=== PATIENT | male | born 1955 | race Two or more races ===

== ENCOUNTER 2019-08-11 04:59 | Inpatient (IN) | payer BC, OTHER ==
[2019-08-10 13:35] VITALS: BMI 21.7
[2019-08-11] MEDS ORDERED: ONDANSETRON 4 MG/2 ML VIAL IVPUSH PRN (12:25)
[2019-08-11] MEDS ORDERED: LACTATED RINGERS SOLUTION 1,000 ML IV SCH (12:30)
[2019-08-11] MEDS ORDERED: MIDAZOLAM HCL 2 MG/2 ML SINGLE DOSE VIAL ONE (12:30)
[2019-08-11] MEDS ORDERED: PROPOFOL 20 ML ONE (12:32)
[2019-08-11] MEDS ORDERED: ceFAZolin SODIUM 1 GM VIAL IVPB ONE (12:35)
--- NOTE | 2019-08-11 13:41 | OP ---
Operative Note - Note: Operative Date: 08/11/19 Pre-Operative Diagnosis: BPH w/ obstruction Operation: TURP/TUVP Findings: Trilobar hypertrophy prostate bladder trabeculation. Post-Operative Diagnosis: Same as Pre-op Surgeon: Odalys Rizo Anesthesia: General Specimens Removed: Prostate chips Drains & Tubes with Location: 24 kiswahili, 30cc [address] triana Operative Report Dictated: Yes
--- NOTE | 2019-08-11 14:23 | HP ---
DATE OF ADMISSION: 08/11/2019 HISTORY OF PRESENT ILLNESS: The patient is a 64-year-old male with history of prostatism including frequency, urgency, nocturia, dribbling, and feelings of incomplete bladder emptying. Patient has had elevations of his PSA up to 7.7, has had past biopsies which came back as benign. He also has a history of hypogonadism as well as erectile dysfunction on hormone replacement therapy. He has been on Flomax without any relief. PHYSICAL EXAMINATION: General: A well developed adult male. Abdomen: Soft and nontender. Genitalia: Atraumatic. His prostate is 2+, firm, not nodular. Cystoscopy revealed bladder diverticulum with obstructing prostate gland. BUN and creatinine are 19 over 0.9. Again, his PSA is 7.7. ASSESSMENT/PLAN: The patient is to undergo a cystoscopy and a transurethral resection of prostate. This was explained to patient, and he agrees. Michael [id number]
[2019-08-11] MEDS: SODIUM CHLORIDE 1,000 ML IV SCH (14:28)
[2019-08-11] MEDS: ACETAMINOPHEN 1000 MG/100 ML VIAL (NON FORMULARY) IVPB PRN (15:35)
--- NOTE | 2019-08-11 17:13 | OP ---
DATE OF OPERATION: 08/11/2019 PREOPERATIVE DIAGNOSIS: Obstructive uropathy, benign prostatic hypertrophy, recurrent retention. POSTOPERATIVE DIAGNOSIS: Trilobar hypertrophy of the prostate and trabeculated bladder. OPERATIVE PROCEDURE: Transurethral resection of prostate and transurethral vaporization of prostate. ANESTHESIA: General. DESCRIPTION OF PROCEDURE: Under above-stated anesthesia, patient is prepped and draped in the usual sterile manner. He is placed in the dorsal lithotomy position. Cystoscopy revealed trilobar hypertrophy of the prostate. There was lateral lobe kissing. Resectoscope was inserted. Resection of the prostate was commenced at the 6 o'clock position of the right lateral lobe. This was carried on up to the 12 o'clock position. Same thing was done to the left lateral lobe. Lastly, the median lobe was resected. Hemostasis was secured with electrocoagulation. Excess tissue was vaporized with a VaporTrode. An i2O Water evacuator was used to evacuate prostate chips. No active bleeding was noted. Therefore, a 24-Estonian 3-way 30-mL Gauthier was inserted and connected to a drainage bag. The patient tolerated the procedure well. He returned to the recovery room in good condition. Michael [id number]
[2019-08-11] MEDS: oxyCODONE HCL 5 MG TABLET PO PRN (19:05)
[2019-08-11] MEDS ORDERED: FLU VACCINE QUAD 60 MCG/0.5 ML (MDV 19-20) IM ONE (22:49)
[2019-08-11] MEDS: ACETAMINOPHEN 325 MG TABLET (FP) PO PRN (22:55)
[2019-08-12] MEDS: ACETAMINOPHEN 1000 MG/100 ML VIAL (NON FORMULARY) IVPB PRN ×2 (04:04→15:32)
[2019-08-12] MEDS: SODIUM CHLORIDE 1,000 ML IV SCH ×2 (04:05→18:27)
[2019-08-12] MEDS: LACTATED RINGERS SOLUTION 1,000 ML IV SCH ×2 (04:06→15:31)
[2019-08-12] MEDS: oxyCODONE HCL 5 MG TABLET PO PRN ×3 (04:37→15:41)
[2019-08-12] MEDS: ACETAMINOPHEN 325 MG TABLET (FP) PO PRN (09:38)
[2019-08-12] MEDS ORDERED: cefTRIAXone SODIUM 1 GM VIAL ONE ×2 (12:47→21:07)
[2019-08-12] MEDS ORDERED: DEXTROSE 5%-WATER - 50 ML IVPB ONE ×2 (12:47→21:07)
[2019-08-12] MEDS: CEFTRIAXONE 1 GM in DEXTROSE 5%-WATER - 50 ML IVPB SCH ×2 (13:12→21:13)
[2019-08-13] MEDS: oxyCODONE HCL 5 MG TABLET PO PRN ×3 (00:21→18:35)
[2019-08-13] MEDS: ACETAMINOPHEN 1000 MG/100 ML VIAL (NON FORMULARY) IVPB PRN (01:34)
--- NOTE | 2019-08-13 09:24 | CONSULT ---
Consultation: HISTORY OF PRESENT ILLNESS: 64 year old male with a history of BPH is POD #3 for TURP due to BPH. Patient has had fevers for the past several days. Reports that they may have begun prior to his surgery, but he only began to feel serious chills after his operation. States that he feels occasional body aches and reports pain when he needs to urinate, but denies any other complaints. Denies chest pain, SOB, nausea, vomiting, diarrhea, abdominal pain, cough, chest pain. Allergies: none Smoke: 1 cig/day for 20 years Alcohol: occasional Drugs: none Surgery: 2 TURPs Family History: heart disease "runs in the family" REVIEW OF SYSTEMS: CONSTITUTIONAL: fever Absent: chills, diaphoresis, generalized weakness, malaise, loss of appetite, weight change HEENT: Absent: rhinorrhea, nasal congestion, throat pain, throat swelling, difficulty swallowing, mouth swelling, ear pain, eye pain, visual changes CARDIOVASCULAR: Absent: chest pain, syncope, palpitations, irregular heart rate, lightheadedness , peripheral edema RESPIRATORY: Absent: cough, shortness of breath, dyspnea with exertion, orthopnea, wheezing, stridor, hemoptysis GASTROINTESTINAL: Absent: abdominal pain, abdominal distension, nausea, vomiting, diarrhea, constipation, melena, hematochezia GENITOURINARY: Absent: dysuria, frequency, urgency, hesitancy, hematuria, flank pain, genital pain MUSCULOSKELETAL: Absent: myalgia, arthralgia, joint swelling, back pain, neck pain SKIN: Absent: rash, itching, pallor HEMATOLOGIC/IMMUNOLOGIC: Absent: easy bleeding, easy bruising, lymphadenopathy, frequent infections ENDOCRINE: Absent: unexplained weight gain, unexplained weight loss, heat intolerance, cold intolerance NEUROLOGIC: Absent: headache, focal weakness or paresthesias, dizziness, unsteady gait, seizure, mental status changes, bladder or bowel incontinence PSYCHIATRIC: Absent: anxiety, depression, suicidal or homicidal ideation, hallucinations. PHYSICAL EXAMINATION Vital Signs - 24 hr 08/12/19 08/12/19 08/12/19 11:00 15:00 16:05 Temperature 102.3 F H 101.8 F H 103 F H Pulse Rate 100 H 106 H 97 H Respiratory 18 18 20 Rate Blood Pressure 131/74 157/75 136/72 08/12/19 08/12/19 08/12/19 18:35 19:00 20:00 Temperature 101 F H 99.3 F 98.9 F Pulse Rate 70 84 Respiratory 20 18 Rate Blood Pressure 121/77 132/77 08/13/19 08/13/19 02:00 06:17 Temperature 102.7 F H 98.8 F Pulse Rate 100 H 82 Respiratory 18 16 Rate Blood Pressure 150/84 GENERAL: A&Ox3, no acute distress EYES: PERRLA, EOMI ENT: Moist mucus membranes NECK: No JVD LUNGS: CTA, no wheezes HEART: RRR, no murmurs ABDOMEN: Soft, nontender, BS present MUSCULOSKELETAL: No CVA Tenderness EXTREMITIES: 2+ pulses, no edema. NEUROLOGICAL: Cranial nerves II-XII intact. : Gauthier in place draining clear yellow urine Active Medications Generic Name Dose Route Start Last Admin Trade Name Freq PRN Reason Stop Dose Admin Acetaminophen 325 mg 08/11/19 16:46 08/12/19 09:38 Tylenol - PO 325 mg Q6H PRN Administration PAIN LEVEL 7-10 Fentanyl 50 mcg 08/11/19 12:25 08/11/19 14:30 Sublimaze Injection - IVPUSH 50 mcg [id number] PRN Administration PAIN-PACU ORDER X 4 DOSES ONLY Fentanyl 25 mcg 08/11/19 13:47 Sublimaze Injection - IVPUSH [id number] PRN PAIN-PACU ORDER X 4 DOSES ONLY Sodium Chloride 1,000 mls @ 83 mls/hr 08/11/19 13:45 08/12/19 18:27 Normal Saline - IV 83 mls/hr ASDIR TOMA Administration Lactated Ringer's 1,000 mls @ 75 mls/hr 08/11/19 14:00 08/12/19 15:31 Lactated Ringers Solution IV Not Given ASDIR TOMA Ceftriaxone Sodium 1 gm/ 50 mls @ 100 mls/hr 08/12/19 12:00 08/12/19 21:13 Dextrose IVPB 100 mls/hr BID TOMA Administration Ondansetron HCl 4 mg 08/11/19 12:25 Zofran Injection IVPUSH Q6H PRN NAUSEA AND/OR VOMITING Oxycodone HCl 5 mg 08/11/19 12:25 08/12/19 15:41 Roxicodone - PO 5 mg Q4H PRN Administration PAIN LEVEL 1-5 Oxycodone HCl 5 mg 08/11/19 16:46 08/13/19 00:21 Roxicodone - PO 5 mg Q6H PRN Administration PAIN LEVEL 7-10 ASSESSMENT/PLAN: 64 year old male with a history of BPH is POD #3 for TURP due to BPH. Patient has had fevers for the past several days. #Post-operative fever: unclear etiology, patient is POD3 with uncomplicated postoperative course -initial blood/urine cultures were negative -repeat urine culture -chest XR ordered and is negative for infection -ceftriaxone ordered -ID consultation -IVF w/ NS @ 83cc/hr -DC CBI -respiratory virus panel ordered #BPH: s/p turp POD3 -pain control oxycodone/tylenol -Dr Rizo on board -CBI d/c'd -monitor urine output #FEN -NS @ 83cc/hr -lytes normal -regular diet #Prophylaxis -SCDS #Disposition -med surg Visit type - Emergency Visit Emergency Visit: No - New Patient This patient is new to me today: Yes Date on this admission: 08/13/19 - Critical Care Critical Care patient: No ATTENDING PHYSICIAN STATEMENT I saw and evaluated the patient. I reviewed the resident's note and discussed the case with the resident. I agree with the resident's findings and plan as documented. SUBJECTIVE: OBJECTIVE: ASSESSMENT AND PLAN:
[2019-08-13] MEDS ORDERED: cefTRIAXone SODIUM 1 GM VIAL ONE ×2 (09:39→21:52)
[2019-08-13] MEDS ORDERED: DEXTROSE 5%-WATER - 50 ML IVPB ONE ×2 (09:39→21:52)
[2019-08-13] MEDS: ACETAMINOPHEN 325 MG TABLET (FP) PO PRN ×2 (10:20→18:36)
[2019-08-13] MEDS: CEFTRIAXONE 1 GM in DEXTROSE 5%-WATER - 50 ML IVPB SCH ×2 (10:21→22:02)
[2019-08-13 10:28] LABS: BASO % 0.6 % (0-2.0); EOS % 8.9 % (0-4.5); HEMATOCRIT 34.8 % (35.4-49); HEMOGLOBIN 11.1 GM/dL (11.7-16.9); LYMPH % 7.3 % (8-40); MCH 28.1 pg (25.7-33.7); MCHC 31.9 g/dl (32.0-35.9); MEAN CELL VOLUME 88.1 fl (80-96); MEAN PLT VOLUME 8.6 fl (7.5-11.1); MONO % 6.1 % (3.8-10.2); NEUT % 77.1 % (42.8-82.8); PLATELET COUNT 177 K/MM3 (134-434); RBC 3.95 M/mm3 (4.00-5.60); RDW 13.9 % (11.9-15.9); WHITE BLOOD COUNT 7.9 K/mm3 (4.0-10.0)
[2019-08-13 10:53] LABS: ALBUMIN 2.7 g/dl (3.4-5.0); BILIRUBIN,TOTAL 0.2 mg/dL (0.2-1); BLOOD UREA NITROGEN 11.8 mg/dL (7-18); CALCIUM 8.1 mg/dL (8.5-10.1); CREATININE 0.9 mg/dL (0.55-1.3); POTASSIUM 3.7 mmol/L (3.5-5.1); TOT PROT 5.6 g/dl (6.4-8.2)
--- NOTE | 2019-08-13 16:58 | CON.ID ---
Consult - History of Present Illness History of Present Illness: 64 y.o. male with PMH of prostatitis/BPH with elevated PSA (previous biopsies benign), erectile dysfunction and hypoganidism on HRT underwent cystoscopy/TURP 2 days ago. Subsequently he developed persistent fevers (Tmax 103F) and chills. Urine cultures on day of surgery were negative. Pt was started on Ceftriaxone while awaiting workup for infectious source. Today he is alert, without acute distress with temp of 100.2F earlier in the am and afebrile since. He denies cough/SOB/chest pain/nausea/vomiting/diarrhea/rash and has no other specific complaints. Appears comfortable. 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: Alzheimer's, CVA, Dementia, Migraine, Multiple Sclerosis, Peripheral Neuropathy, Parkinson's, Seizure, Syncope, TIA, Vertigo, Other Cardio/Vascular: No: AFIB, Aneurysm, Aortic Insufficiency, Aortic Stenosis, CAD , CHF, Deep Vein Thrombosis, HTN, Hyperlipdemia, AL, Mitral Insufficiency, Mitral Stenosis, Murmur, Pulmonary Hypertension, Other Pulmonary: No: Asthma, Bronchitis, Cancer, COPD, O2 Dependent, Pneumonia, Previously Intubated, Pulmonary Embolus, Pulmonary Fibrosis, Sleep Apnea, Other Gastrointestinal: No: Ascites, Cancer, Constipation, Crohn's Disease, Diverticulitis, Diverticulosis, Esophageal Varices, Gastritis, GERD, GI Bleed, Hemorrhoids, Hiatal Hernia, Inflamatory Bowel Disease, Irritable Bowel Disease, Pancreatitis, Peptic Ulcer Disease, Ulcerative Colitis, Other Hepatobiliary: No: Cirrhosis, Cholelithiasis, Cholecystitis, Choledocholithiasis , Hepatitis A, Hepatitis B, Hepatitis C, Other Renal/: Yes: BPH Heme/Onc: No: Anemia, B12 Deficiency, Bleeding Disorder, Cancer, Current Chemotherapy, Current Radiation Therapy, Hemochromatosis, Hypercoaguable State, Myeloproliferative Synd, Sickle Cell Disease, Sickle Cell Trait, Thrombocytopenia, Other Infectious Disease: No: AIDS, C-Diff, Herpes Zoster, HIV, MRSA, STD's, Tuberculosis, VREF, Other Psych: No: Addictions, Anxiety, Bipolar, Depression, Panic, Psychosis, Schizophrenia, Other Musculoskeletal: No: Bursitis, Chronic low back pain, Hemiparesis, Hemiplegia, Osteoarthritis, Paraplegia, Other Rheumatology: No: Fibromyalgia, Gout, Lupus, Rheumatoid Arthritis, Sarcoidosis, Vasculitis, Other ENT: No: Allergic Rhinitis, Sinusitis, Other Endocrine: Yes: Other (hypogonadism) - Alcohol/Substance Use Hx Alcohol Use: Yes (OCCASIONAL) - Smoking History Smoking history: Current some day smoker Aproximately how many cigarettes per day: 2 Home Medications - Allergies Allergies/Adverse Reactions: Allergies Allergy/AdvReac Type Severity Reaction Status Date / Time No Known Drug Allergies Allergy Verified 08/11/19 09:39 - Home Medications Home Medications: Ambulatory Orders Atorvastatin Ca [Lipitor] 20 mg PO HS 08/10/19 Ibuprofen/Diphenhydramine Cit [Advil Pm Caplet] 1 each PO HS 08/10/19 Tamsulosin HCl [Flomax] 0.4 mg PO HS 08/10/19 Review of Systems - Review of Systems Constitutional: reports: Chills, Fever Eyes: denies: No Symptoms, Blind Spots, Blurred Vision, Double Vision, Eye Pain , Floaters, Photophobia, Recent Change in Vision, Other HENT: denies: No Symptoms, Difficult Swallowing, Ear Discharge, Ear Pain, Epistaxis, Gingival Bleeding, Hearing Loss, Mouth Swelling, Nasal Congestion, Ocular Prosthesis, Throat Pain, Toothache, Ringing in Ears, Other Neck: denies: No Symptoms, Decreased ROM, Lumps, Pain on Movement, Stiffness, Swollen Glands, Tenderness, Other Cardiovascular: denies: No Symptoms, Chest Pain, Edema, Palpitations, Shortness of Breath, Other Respiratory: denies: No Symptoms, Cough, Exercise Intolerance, Hemoptysis, Orthopnea, PND, Snoring, SOB, SOB on Exertion, Wheezing, Other Gastrointestinal: denies: No Symptoms, Abdominal Pain, Bloating, Constipation, Diarrhea, Dysphagia, Indigestion, Melena, Nausea, Rectal Bleeding, Vomiting, Vomiting Blood, Other Genitourinary: reports: Dysuria. denies: No Symptoms, Burning, Discharge, Flank Pain, Frequency, Hematuria, Incontinence, Lesions, Menses, Pain, Testicular Mass, Testicular Pain, Testicular Swelling, Urgency, Vaginal Bleeding , Other Musculoskeletal: denies: No Symptoms, Back Pain, Crepitus, Decreased ROM, Extremity Pain, Joint Pain, Joint Swelling, Muscle Pain, Muscle Cramps, Muscle Weakness, Other Integumentary: denies: No Symptoms, Blister, Bruising, Change in Color, Eczema, Erythema, Incision, Lesions, Lump, Pallor, Pruritis, Rash, Wound, Other Neurological: denies: No Symptoms, Change in LOC, Change in Speech, Confusion, Dizziness, Headache, Incoordination, Numbness, Parasthesia, Pre-Existing Deficit , Seizure, Syncope, Tremors, Unsteady Gait, Weakness, Other Endocrine: denies: No Symptoms, Excessive Sweating, Flushing, Increased Hunger, Increased Thirst, Intolerance to Cold, Intolerance to Heat, Unexplained Weight Gain, Unexplained Weight Loss, Other Hematology/Lymphatic: denies: No Symptoms, Easily Bruised, Excessive Bleeding, Swollen Glands, Other Psychiatric: denies: No Symptoms, Altered Sleep Pattern, Anxiety, Depression, Hallucinations, Panic, Paranoia, Suicidal, Other Physical Exam Vital Signs: Vital Signs Temperature 98 F 08/13/19 15:00 Pulse Rate 59 L 08/13/19 15:00 Respiratory Rate 18 08/13/19 15:00 Blood Pressure 159/71 08/13/19 15:00 O2 Sat by Pulse Oximetry (%) 99 08/13/19 09:00 Constitutional: Yes: No Distress, Calm Eyes: Yes: Conjunctiva Clear, EOM Intact HENT: Yes: Atraumatic Neck: Yes: Supple Cardiovascular: Yes: Regular Rate and Rhythm Respiratory: Yes: CTA Bilaterally Gastrointestinal: Yes: Normal Bowel Sounds, Soft Renal/: Yes: Gauthier Present (mild hematuria) Musculoskeletal: Yes: WNL Extremities: Yes: WNL Edema: No Peripheral Pulses WNL: Yes Integumentary: Yes: WNL Neurological: Yes: Alert, Oriented Psychiatric: Yes: Alert Labs: CBC, BMP 08/13/19 10:12 08/13/19 10:12 Microbiology 08/12/19 12:35 Blood - Peripheral Venous Blood Culture - Preliminary NO GROWTH OBTAINED AFTER 24 HOURS, INCUBATION TO CONTINUE FOR 4 DAYS. 08/12/19 12:45 Blood - Peripheral Venous Blood Culture - Preliminary NO GROWTH OBTAINED AFTER 24 HOURS, INCUBATION TO CONTINUE FOR 4 DAYS. 08/11/19 13:00 Urine - Urine, Via Cystoscope Urine Culture - Final NO GROWTH OBTAINED Imaging - Results Chest X-ray: Report Reviewed Assessment/Plan 64 y.o. male with PMH of prostatitis/BPH with elevated PSA (previous biopsies benign), erectile dysfunction and hypoganidism on HRT underwent cystoscopy/TURP 2 days ago and subsequently developed fevers Fever/chills - r/o infectious etiology vs post-op induced BPH/prostatitis s/p cystoscopy/TURP POD#2 Hypogonadism Erectile dysfunction on hormone replacement therapy -- continue Ceftriaxone empirically for now -- Pt afebrile since this a.m. -- Previous urine cultures neg, blood cultures neg 24hrs - continue follow -- repeat Urine culture sent -- monitor wbc trend, normal today -- CXR negative Currently stable, afebrile, without distress at this time Will follow Thank you
[2019-08-13] MEDS: LACTATED RINGERS SOLUTION 1,000 ML IV SCH (18:09)
[2019-08-13] MEDS: SODIUM CHLORIDE 1,000 ML IV SCH (18:09)
--- NOTE | 2019-08-13 20:23 | PN ---
Teaching Attending Note Name of Resident: Donta Bolivar ATTENDING PHYSICIAN STATEMENT I saw and evaluated the patient. I reviewed the resident's note and discussed the case with the resident. I agree with the resident's findings and plan as documented. SUBJECTIVE: Patient is a 64yo female with PMHx of BPH s/p TURP and CBI, having fever of 102.7 today. OBJECTIVE: Vital Signs Temperature 99.4 F 08/13/19 19:12 Pulse Rate 80 08/13/19 17:14 Respiratory Rate 20 08/13/19 17:14 Blood Pressure 136/81 08/13/19 17:14 O2 Sat by Pulse Oximetry (%) 99 08/13/19 09:00 GENERAL: The patient is awake, alert, and fully oriented, in no acute distress. HEAD: Normal with no signs of trauma. EYES: PERRL, extraocular movements intact, sclera anicteric, conjunctiva clear. ENT: Ears normal, oropharynx clear without exudates, moist mucous membranes. NECK: Trachea midline, full range of motion, supple. LUNGS: Breath sounds equal, clear to auscultation bilaterally, no wheezes, no crackles, no accessory muscle use. HEART: Regular rate and rhythm, S1, S2 without murmur, rub or gallop. ABDOMEN: Soft, nontender, nondistended, normoactive bowel sounds, no guarding, no rebound, no hepatosplenomegaly, no masses. EXTREMITIES: 2+ pulses, warm, well-perfused, no edema. NEUROLOGICAL: Cranial nerves II through XII grossly intact. Normal speech, gait not observed. PSYCH: Normal mood, normal affect. SKIN: Warm, dry, normal turgor, no rashes or lesions noted CBCD WBC 7.9 K/mm3 (4.0-10.0) 08/13/19 10:12 RBC 3.95 M/mm3 (4.00-5.60) L 08/13/19 10:12 Hgb 11.1 GM/dL (11.7-16.9) L 08/13/19 10:12 Hct 34.8 % (35.4-49) L 08/13/19 10:12 MCV 88.1 fl (80-96) 08/13/19 10:12 MCHC 31.9 g/dl (32.0-35.9) L 08/13/19 10:12 RDW 13.9 % (11.9-15.9) 08/13/19 10:12 Plt Count 177 K/MM3 (134-434) 08/13/19 10:12 MPV 8.6 fl (7.5-11.1) 08/13/19 10:12 CMP Sodium 139 mmol/L (136-145) 08/13/19 10:12 Potassium 3.7 mmol/L (3.5-5.1) 08/13/19 10:12 Chloride 108 mmol/L (98-107) H 08/13/19 10:12 Carbon Dioxide 27 mmol/L (21-32) 08/13/19 10:12 Anion Gap 4 MMOL/L (8-16) L 08/13/19 10:12 BUN 11.8 mg/dL (7-18) 08/13/19 10:12 Creatinine 0.9 mg/dL (0.55-1.3) 08/13/19 10:12 Random Glucose 158 mg/dL (74-106) H 08/13/19 10:12 Calcium 8.1 mg/dL (8.5-10.1) L 08/13/19 10:12 Total Bilirubin 0.2 mg/dL (0.2-1) 08/13/19 10:12 AST 37 U/L (15-37) 08/13/19 10:12 ALT 58 U/L (13-61) 08/13/19 10:12 Alkaline Phosphatase 98 U/L (45-117) 08/13/19 10:12 Total Protein 5.6 g/dl (6.4-8.2) L 08/13/19 10:12 Albumin 2.7 g/dl (3.4-5.0) L 08/13/19 10:12 Current Medications Generic Name Dose Route Start Last Admin Trade Name Freq PRN Reason Stop Dose Admin Acetaminophen 325 mg 08/11/19 16:46 08/13/19 18:36 Tylenol - PO 325 mg Q6H PRN Administration PAIN LEVEL 7-10 Fentanyl 50 mcg 08/11/19 12:25 08/11/19 14:30 Sublimaze Injection - IVPUSH 50 mcg [id number] PRN Administration PAIN-PACU ORDER X 4 DOSES ONLY Fentanyl 25 mcg 08/11/19 13:47 Sublimaze Injection - IVPUSH [id number] PRN PAIN-PACU ORDER X 4 DOSES ONLY Sodium Chloride 1,000 mls @ 83 mls/hr 08/11/19 13:45 08/13/19 18:09 Normal Saline - IV Not Given ASDIR TOMA Lactated Ringer's 1,000 mls @ 75 mls/hr 08/11/19 14:00 08/13/19 18:09 Lactated Ringers Solution IV Not Given ASDIR TOMA Ceftriaxone Sodium 1 gm/ 50 mls @ 100 mls/hr 08/12/19 12:00 08/13/19 10:21 Dextrose IVPB 100 mls/hr BID TOMA Administration Ondansetron HCl 4 mg 08/11/19 12:25 Zofran Injection IVPUSH Q6H PRN NAUSEA AND/OR VOMITING Oxycodone HCl 5 mg 08/11/19 12:25 08/13/19 18:35 Roxicodone - PO 5 mg Q4H PRN Administration PAIN LEVEL 1-5 Oxycodone HCl 5 mg 08/11/19 16:46 08/13/19 00:21 Roxicodone - PO 5 mg Q6H PRN Administration PAIN LEVEL 7-10 Home Medications Medication Instructions Recorded Atorvastatin Ca [Lipitor] 20 mg PO HS 08/10/19 Ibuprofen/Diphenhydramine Cit 1 each PO HS 08/10/19 [Advil Pm Caplet] Tamsulosin HCl [Flomax] 0.4 mg PO HS 08/10/19 ASSESSMENT AND PLAN: Patient is a 64yo female with a history of BPH is POD #3 for TURP due to BPH. consulted for having fever of several day. #POD#2 hx of BPH/prostatitis s/p TURP s/p CBI , clearing up. Post-operative fever , calderon cx, IV rocephin , ID on the case #Fever/chills - r/o infectious etiology vs post-op induced #Hypogonadism # Erectile dysfunction on hormone replacement therapy DVT Px: SCDS
[2019-08-14] MEDS: oxyCODONE HCL 5 MG TABLET PO PRN ×4 (01:23→21:55)
[2019-08-14] MEDS: ACETAMINOPHEN 325 MG TABLET (FP) PO PRN ×3 (01:30→21:54)
--- NOTE | 2019-08-14 09:57 | PN ---
Progress Note, Physician History of Present Illness: spiked a fever last night currently feels better - Current Medication List Current Medications: Active Medications Acetaminophen (Tylenol -) 325 mg PO Q6H PRN PRN Reason: PAIN LEVEL 7-10 Last Admin: 08/14/19 01:30 Dose: 325 mg Fentanyl (Sublimaze Injection -) 50 mcg IVPUSH [id number] PRN PRN Reason: PAIN-PACU ORDER X 4 DOSES ONLY Last Admin: 08/11/19 14:30 Dose: 50 mcg Fentanyl (Sublimaze Injection -) 25 mcg IVPUSH [id number] PRN PRN Reason: PAIN-PACU ORDER X 4 DOSES ONLY Sodium Chloride (Normal Saline -) 1,000 mls @ 83 mls/hr IV ASDIR [facility] Last Admin: 08/13/19 18:09 Dose: Not Given Lactated Ringer's (Lactated Ringers Solution) 1,000 mls @ 75 mls/hr IV ASDIR [facility] Last Admin: 08/13/19 18:09 Dose: Not Given Ceftriaxone Sodium 1 gm/ (Dextrose) 50 mls @ 100 mls/hr IVPB BID [facility] Last Admin: 08/13/19 22:02 Dose: 100 mls/hr Ondansetron HCl (Zofran Injection) 4 mg IVPUSH Q6H PRN PRN Reason: NAUSEA AND/OR VOMITING Oxycodone HCl (Roxicodone -) 5 mg PO Q4H PRN PRN Reason: PAIN LEVEL 1-5 Last Admin: 08/14/19 01:23 Dose: 5 mg Oxycodone HCl (Roxicodone -) 5 mg PO Q6H PRN PRN Reason: PAIN LEVEL 7-10 Last Admin: 08/14/19 06:25 Dose: 5 mg - Objective Vital Signs: Vital Signs Temperature 99 F 08/14/19 01:59 Pulse Rate 76 08/14/19 01:59 Respiratory Rate 20 08/14/19 01:59 Blood Pressure 149/98 08/14/19 01:59 O2 Sat by Pulse Oximetry (%) 99 08/13/19 21:00 Constitutional: Yes: No Distress, Calm Cardiovascular: Yes: S1, S2 Respiratory: Yes: Regular, CTA Bilaterally Gastrointestinal: Yes: Normal Bowel Sounds, Soft Musculoskeletal: Yes: WNL Extremities: Yes: WNL Neurological: Yes: Alert, Oriented Psychiatric: Yes: Alert, Oriented Labs: CBC, BMP 08/13/19 10:12 08/13/19 10:12 Assessment/Plan 64 y.o. male with PMH of prostatitis/BPH with elevated PSA (previous biopsies benign), erectile dysfunction and hypoganidism on HRT underwent cystoscopy/TURP 2 days ago and subsequently developed fevers Fever/chills - r/o infectious etiology vs post-op induced BPH/prostatitis s/p cystoscopy/TURP POD#2 Hypogonadism Erectile dysfunction on hormone replacement therapy -- continue Ceftriaxone empirically for now -cx results noted rest as per the team
--- NOTE | 2019-08-14 10:03 | PN ---
Teaching Attending Note Name of Resident: Miguel A Bourne ATTENDING PHYSICIAN STATEMENT I saw and evaluated the patient. I reviewed the resident's note and discussed the case with the resident. I agree with the resident's findings and plan as documented. SUBJECTIVE: Patient is doing comfortable with no acute distress. Hematuria is improving. OBJECTIVE: Vital Signs Temperature 99 F 08/14/19 01:59 Pulse Rate 76 08/14/19 01:59 Respiratory Rate 20 08/14/19 01:59 Blood Pressure 149/98 08/14/19 01:59 O2 Sat by Pulse Oximetry (%) 99 08/13/19 21:00 GENERAL: The patient is awake, alert, and fully oriented, in no acute distress. HEAD: Normal with no signs of trauma. EYES: PERRL, extraocular movements intact, sclera anicteric, conjunctiva clear. ENT: Ears normal, oropharynx clear without exudates, moist mucous membranes. NECK: Trachea midline, full range of motion, supple. LUNGS: Breath sounds equal, clear to auscultation bilaterally, no wheezes, no crackles, no accessory muscle use. HEART: Regular rate and rhythm, S1, S2 without murmur, rub or gallop. ABDOMEN: Soft, nontender, nondistended, normoactive bowel sounds, no guarding, no rebound, no hepatosplenomegaly, no masses. EXTREMITIES: 2+ pulses, warm, well-perfused, no edema. NEUROLOGICAL: Cranial nerves II through XII grossly intact. Normal speech, gait is stable PSYCH: Normal mood, normal affect. SKIN: Warm, dry, normal turgor, no rashes or lesions noted CBCD WBC 7.9 K/mm3 (4.0-10.0) 08/13/19 10:12 RBC 3.95 M/mm3 (4.00-5.60) L 08/13/19 10:12 Hgb 11.1 GM/dL (11.7-16.9) L 08/13/19 10:12 Hct 34.8 % (35.4-49) L 08/13/19 10:12 MCV 88.1 fl (80-96) 08/13/19 10:12 MCHC 31.9 g/dl (32.0-35.9) L 08/13/19 10:12 RDW 13.9 % (11.9-15.9) 08/13/19 10:12 Plt Count 177 K/MM3 (134-434) 08/13/19 10:12 MPV 8.6 fl (7.5-11.1) 08/13/19 10:12 CMP Sodium 139 mmol/L (136-145) 08/13/19 10:12 Potassium 3.7 mmol/L (3.5-5.1) 08/13/19 10:12 Chloride 108 mmol/L (98-107) H 08/13/19 10:12 Carbon Dioxide 27 mmol/L (21-32) 08/13/19 10:12 Anion Gap 4 MMOL/L (8-16) L 08/13/19 10:12 BUN 11.8 mg/dL (7-18) 08/13/19 10:12 Creatinine 0.9 mg/dL (0.55-1.3) 08/13/19 10:12 Random Glucose 158 mg/dL (74-106) H 08/13/19 10:12 Calcium 8.1 mg/dL (8.5-10.1) L 08/13/19 10:12 Total Bilirubin 0.2 mg/dL (0.2-1) 08/13/19 10:12 AST 37 U/L (15-37) 08/13/19 10:12 ALT 58 U/L (13-61) 08/13/19 10:12 Alkaline Phosphatase 98 U/L (45-117) 08/13/19 10:12 Total Protein 5.6 g/dl (6.4-8.2) L 08/13/19 10:12 Albumin 2.7 g/dl (3.4-5.0) L 08/13/19 10:12 Current Medications Generic Name Dose Route Start Last Admin Trade Name Freq PRN Reason Stop Dose Admin Acetaminophen 325 mg 08/11/19 16:46 08/14/19 01:30 Tylenol - PO 325 mg Q6H PRN Administration PAIN LEVEL 7-10 Fentanyl 50 mcg 08/11/19 12:25 08/11/19 14:30 Sublimaze Injection - IVPUSH 50 mcg [id number] PRN Administration PAIN-PACU ORDER X 4 DOSES ONLY Fentanyl 25 mcg 08/11/19 13:47 Sublimaze Injection - IVPUSH [id number] PRN PAIN-PACU ORDER X 4 DOSES ONLY Sodium Chloride 1,000 mls @ 83 mls/hr 08/11/19 13:45 08/13/19 18:09 Normal Saline - IV Not Given ASDIR TOMA Lactated Ringer's 1,000 mls @ 75 mls/hr 08/11/19 14:00 08/13/19 18:09 Lactated Ringers Solution IV Not Given ASDIR TOMA Ceftriaxone Sodium 1 gm/ 50 mls @ 100 mls/hr 08/12/19 12:00 08/13/19 22:02 Dextrose IVPB 100 mls/hr BID TOMA Administration Ondansetron HCl 4 mg 08/11/19 12:25 Zofran Injection IVPUSH Q6H PRN NAUSEA AND/OR VOMITING Oxycodone HCl 5 mg 08/11/19 12:25 08/14/19 01:23 Roxicodone - PO 5 mg Q4H PRN Administration PAIN LEVEL 1-5 Oxycodone HCl 5 mg 08/11/19 16:46 08/14/19 06:25 Roxicodone - PO 5 mg Q6H PRN Administration PAIN LEVEL 7-10 Home Medications Medication Instructions Recorded Atorvastatin Ca [Lipitor] 20 mg PO HS 08/10/19 Ibuprofen/Diphenhydramine Cit 1 each PO HS 08/10/19 [Advil Pm Caplet] Tamsulosin HCl [Flomax] 0.4 mg PO HS 08/10/19 ASSESSMENT AND PLAN: Patient is a 64yo female with a history of BPH is POD #3 for TURP due to BPH. consulted for having fever of several day. #POD#2 Hx of BPH/prostatitis s/p TURP s/p CBI , clearing up. Post-operative fever , calderon cx, IV rocephin , ID on the case #Fever/chills - r/o infectious etiology vs post-op induced #Hypogonadism # Erectile dysfunction on hormone replacement therapy DVT Px: SCDS
[2019-08-14] MEDS ORDERED: cefTRIAXone SODIUM 1 GM VIAL ONE ×2 (10:18→21:08)
[2019-08-14] MEDS ORDERED: DEXTROSE 5%-WATER - 50 ML IVPB ONE ×2 (10:18→21:08)
[2019-08-14] MEDS: CEFTRIAXONE 1 GM in DEXTROSE 5%-WATER - 50 ML IVPB SCH ×2 (10:20→21:35)
--- NOTE | 2019-08-14 10:59 | PN ---
Physical Exam: SUBJECTIVE: Patient seen and examined. Pt. complaining of burning sensation on urination and leaking of urinary catheter. Pt. states he has a god appetite. Pt. denies any fever, chills, chest pain, nausea or vomiting, diarrhea or constipation. Overnight Pt. had a TMax of 102.7. OBJECTIVE: Vital Signs Period Temp Pulse Resp BP Sys/Peterson Pulse Ox Last 24 Hr 98 F-99.7 F 59-80 18-20 136-159/71-98 99 GENERAL: The patient is awake, alert, and fully oriented, in no acute distress. HEAD: Normal with no signs of trauma. EYES: PERRL, extraocular movements intact, sclera anicteric, conjunctiva clear. No ptosis. ENT: Ears normal, nares patent, oropharynx clear without exudates, moist mucous membranes. NECK: Trachea midline, full range of motion, supple. LUNGS: Breath sounds equal, clear to auscultation bilaterally, no wheezes, no crackles, no accessory muscle use. HEART: Regular rate and rhythm, S1, S2 without murmur, rub or gallop. ABDOMEN: Soft, suprapubic tenderness, nondistended, normoactive bowel sounds, no guarding, no rebound, no CVA tenderness EXTREMITIES: 2+ dorsal pedal pulses, warm, nocalf tenderness, well-perfused, no edema. NEUROLOGICAL: Cranial nerves II through XII grossly intact. Normal speech, gait not observed. PSYCH: Normal mood, normal affect. SKIN: Warm, dry, normal turgor Laboratory Results - last 24 hr 08/13/19 13:00 Influenza A (Rapid) Negative Influenza B (Rapid) Negative Active Medications Home Medications Medication Instructions Recorded Atorvastatin Ca [Lipitor] 20 mg PO HS 08/10/19 Ibuprofen/Diphenhydramine Cit 1 each PO HS 08/10/19 [Advil Pm Caplet] Tamsulosin HCl [Flomax] 0.4 mg PO HS 08/10/19 Current Medications Acetaminophen (Tylenol -) 325 mg PO Q6H PRN PRN Reason: PAIN LEVEL 7-10 Last Admin: 08/14/19 01:30 Dose: 325 mg Fentanyl (Sublimaze Injection -) 50 mcg IVPUSH [id number] PRN PRN Reason: PAIN-PACU ORDER X 4 DOSES ONLY Last Admin: 08/11/19 14:30 Dose: 50 mcg Fentanyl (Sublimaze Injection -) 25 mcg IVPUSH [id number] PRN PRN Reason: PAIN-PACU ORDER X 4 DOSES ONLY Sodium Chloride (Normal Saline -) 1,000 mls @ 83 mls/hr IV ASDIR [facility] Last Admin: 08/13/19 18:09 Dose: Not Given Lactated Ringer's (Lactated Ringers Solution) 1,000 mls @ 75 mls/hr IV ASDIR [facility] Last Admin: 08/13/19 18:09 Dose: Not Given Ceftriaxone Sodium 1 gm/ (Dextrose) 50 mls @ 100 mls/hr IVPB BID [facility] Last Admin: 08/14/19 10:20 Dose: 100 mls/hr Ondansetron HCl (Zofran Injection) 4 mg IVPUSH Q6H PRN PRN Reason: NAUSEA AND/OR VOMITING Oxycodone HCl (Roxicodone -) 5 mg PO Q4H PRN PRN Reason: PAIN LEVEL 1-5 Last Admin: 08/14/19 01:23 Dose: 5 mg Oxycodone HCl (Roxicodone -) 5 mg PO Q6H PRN PRN Reason: PAIN LEVEL 7-10 Last Admin: 08/14/19 06:25 Dose: 5 mg ASSESSMENT/PLAN: Pt. is a 64 y.o. M w/ PMHx. of BPH is POD #4 for 2nd TURP; we were consulted for having recurrent fevers. #TURP POD#4 w/ recurrent fevers s/p CBI ID Consult(Dr. Lozano) appreciated--> c/w empriric Ceftriaxone. BCx., UA and UCx. NTD Urology onboard Dr. Rizo, f/u recommendations CXR negative c/w LR @ 75 Oxycodone 5mg/ 10mg according to pain scale Zofran PRN Will D/c [place] in AM #Hypogonadism #Erectile dysfunction ]on hormone replacement therapy? #DVT Ppx. SCDS Visit type - Emergency Visit Emergency Visit: Yes ED Registration Date: 08/13/19 Care time: The patient presented to the Emergency Department on the above date and was hospitalized for further evaluation of their emergent condition. - New Patient This patient is new to me today: Yes Date on this admission: 08/14/19 - Critical Care Critical Care patient: No - Discharge Referral Referred to [facility] Med P.C.: Yes ATTENDING PHYSICIAN STATEMENT I saw and evaluated the patient. I reviewed the resident's note and discussed the case with the resident. I agree with the resident's findings and plan as documented. SUBJECTIVE: OBJECTIVE: ASSESSMENT AND PLAN:
--- NOTE | 2019-08-14 13:37 | PN ---
Progress Note (short form) - Note Progress Note: UROLOGY NOTE. POD#3. JOSEPH IS CLEAR, ABD.-SOFT, N/T. PLAN-D/C JOSEPH z
[2019-08-14 16:03] LABS: BASO % 0.9 % (0-2.0); HEMATOCRIT 33.2 % (35.4-49); HEMOGLOBIN 10.9 GM/dL (11.7-16.9); LYMPH % 10.7 % (8-40); MCHC 32.8 g/dl (32.0-35.9); MEAN CELL VOLUME 88.2 fl (80-96); MEAN PLT VOLUME 9.4 fl (7.5-11.1); MONO % 9.3 % (3.8-10.2); NEUT % 66.1 % (42.8-82.8); PLATELET COUNT 177 K/MM3 (134-434); RBC 3.77 M/mm3 (4.00-5.60); RDW 14.1 % (11.9-15.9); WHITE BLOOD COUNT 6.3 K/mm3 (4.0-10.0)
[2019-08-14] MEDS: LACTATED RINGERS SOLUTION 1,000 ML IV SCH (21:32)
[2019-08-14] MEDS: SODIUM CHLORIDE 1,000 ML IV SCH (21:32)
[2019-08-15] MEDS: oxyCODONE HCL 5 MG TABLET PO PRN ×2 (03:53→16:59)
[2019-08-15] MEDS: ACETAMINOPHEN 325 MG TABLET (FP) PO PRN ×2 (03:53→17:00)
[2019-08-15] MEDS ORDERED: cefTRIAXone SODIUM 1 GM VIAL ONE ×2 (09:33→21:14)
[2019-08-15] MEDS ORDERED: DEXTROSE 5%-WATER - 50 ML IVPB ONE ×2 (09:33→21:14)
[2019-08-15] MEDS: CEFTRIAXONE 1 GM in DEXTROSE 5%-WATER - 50 ML IVPB SCH ×2 (09:37→21:38)
--- NOTE | 2019-08-15 11:25 | PN ---
Progress Note, Physician History of Present Illness: patient doign well no issues no urinary symptoms - Current Medication List Current Medications: Active Medications Acetaminophen (Tylenol -) 325 mg PO Q6H PRN PRN Reason: PAIN LEVEL 7-10 Last Admin: 08/15/19 03:53 Dose: 325 mg Fentanyl (Sublimaze Injection -) 50 mcg IVPUSH [id number] PRN PRN Reason: PAIN-PACU ORDER X 4 DOSES ONLY Last Admin: 08/11/19 14:30 Dose: 50 mcg Fentanyl (Sublimaze Injection -) 25 mcg IVPUSH [id number] PRN PRN Reason: PAIN-PACU ORDER X 4 DOSES ONLY Sodium Chloride (Normal Saline -) 1,000 mls @ 83 mls/hr IV ASDIR [facility] Last Admin: 08/14/19 21:32 Dose: Not Given Lactated Ringer's (Lactated Ringers Solution) 1,000 mls @ 75 mls/hr IV ASDIR [facility] Last Admin: 08/14/19 21:32 Dose: Not Given Ceftriaxone Sodium 1 gm/ (Dextrose) 50 mls @ 100 mls/hr IVPB BID [facility] Last Admin: 08/15/19 09:37 Dose: 100 mls/hr Ondansetron HCl (Zofran Injection) 4 mg IVPUSH Q6H PRN PRN Reason: NAUSEA AND/OR VOMITING Oxycodone HCl (Roxicodone -) 5 mg PO Q4H PRN PRN Reason: PAIN LEVEL 1-5 Last Admin: 08/15/19 03:53 Dose: 5 mg - Objective Vital Signs: Vital Signs Temperature 99.3 F 08/15/19 05:58 Pulse Rate 72 08/15/19 05:58 Respiratory Rate 20 08/15/19 05:58 Blood Pressure 129/79 08/15/19 05:58 O2 Sat by Pulse Oximetry (%) 99 08/14/19 09:00 Constitutional: Yes: No Distress, Calm Cardiovascular: Yes: S1, S2 Respiratory: Yes: Regular, CTA Bilaterally Gastrointestinal: Yes: Normal Bowel Sounds, Soft Musculoskeletal: Yes: WNL Extremities: Yes: WNL Neurological: Yes: Alert, Oriented Psychiatric: Yes: Alert, Oriented Labs: CBC, BMP 08/14/19 15:10 08/13/19 10:12 Assessment/Plan 64 y.o. male with PMH of prostatitis/BPH with elevated PSA (previous biopsies benign), erectile dysfunction and hypoganidism on HRT underwent cystoscopy/TURP 2 days ago and subsequently developed fevers Fever/chills - r/o infectious etiology vs post-op induced BPH/prostatitis s/p cystoscopy/TURP POD#2 Hypogonadism Erectile dysfunction on hormone replacement therapy once foleys is dced can stop all abx and monitor
--- NOTE | 2019-08-15 12:58 | PATH ---
Surgical Pathology Report Patient Name: MARJAN HERNANDEZ Med. Rec. #: [id number] /Age/Gender: 1955 (Age: 64) / M Account: [id number] Location: [facility] MED/SURG Taken: 08/11/2019 Received: 08/11/2019 Reported: 08/15/2019 Physicians: Odalys Rizo M.D. Specimen(s) Received PROSTATE CHIPS Clinical History Hypertrophy of prostate Final Diagnosis PROSTATE, TRANSURETHRAL RESECTION AND VAPORIZATION OF PROSTATE: BENIGN PROSTATIC TISSUE WITH PATCHY CHRONIC FOCAL ACUTE INFLAMMATION, ACINAR ATROPHY, CYSTIC CHANGES, GLANDULAR AND STROMAL HYPERPLASIA. RARE NECROTIZING GRANULOMA IDENTIFIED. SPECIAL STAINS FOR FUNGUS (PAS) AND ACID-FAST BACILLI (AFB) ARE NEGATIVE. Comment: Immunohistochemical stain performed and interpreted at [facility] show p63 highlights basal cells. Suggest clinical correlation Positive and negative controls (internal if applicable) show appropriate results. Electronically Signed Kathleen Webster M.D. Gross Description Received in formalin labeled "prostate chips" is a 15 g, 6 x 6 x 2 cm aggregate of mckeon, firm to rubbery portions of tissue, consistent with prostate chips. Entire specimen submitted in 6 cassettes. MLSZ/08/11/2019 sanml/08/11/2019
--- NOTE | 2019-08-15 15:16 | PN ---
Progress Note (short form) - Note Progress Note: UROLOGY NOTE. S/P TURP/TUVP, POD#5 PATH. BPH,NO CANCER,PT. IS VOIDING WELL, AFEBRILE WBC=7,000 PLAN UROLOGICALLY OK FOR D/C.
[2019-08-15] MEDS: SODIUM CHLORIDE 1,000 ML IV SCH (15:31)
--- NOTE | 2019-08-15 16:49 | PN ---
Teaching Attending Note Name of Resident: Lazara Boyer ATTENDING PHYSICIAN STATEMENT I saw and evaluated the patient. I reviewed the resident's note and discussed the case with the resident. I agree with the resident's findings and plan as documented. SUBJECTIVE: Patient is comfortable, NAD. No fever or chills. OBJECTIVE: Vital Signs Temperature 98.8 F 08/15/19 15:00 Pulse Rate 82 08/15/19 15:00 Respiratory Rate 20 08/15/19 15:00 Blood Pressure 138/69 08/15/19 15:00 O2 Sat by Pulse Oximetry (%) 99 08/15/19 09:00 GENERAL: The patient is awake, alert, and fully oriented, in no acute distress. HEAD: Normal with no signs of trauma. EYES: PERRL, extraocular movements intact, sclera anicteric, conjunctiva clear. ENT: Ears normal, oropharynx clear without exudates, moist mucous membranes. NECK: Trachea midline, full range of motion, supple. LUNGS: Breath sounds equal, clear to auscultation bilaterally, no wheezes, no crackles, no accessory muscle use. HEART: Regular rate and rhythm, S1, S2 without murmur, rub or gallop. ABDOMEN: Soft, nontender, nondistended, normoactive bowel sounds, no guarding, no rebound, no hepatosplenomegaly, no masses. EXTREMITIES: 2+ pulses, warm, well-perfused, no edema. NEUROLOGICAL: Cranial nerves II through XII grossly intact. Normal speech, gait is stable PSYCH: Normal mood, normal affect. SKIN: Warm, dry, normal turgor, no rashes or lesions noted WBC 6.3 K/mm3 (4.0-10.0) 08/14/19 15:10 RBC 3.77 M/mm3 (4.00-5.60) L 08/14/19 15:10 Hgb 10.9 GM/dL (11.7-16.9) L 08/14/19 15:10 Hct 33.2 % (35.4-49) L 08/14/19 15:10 MCV 88.2 fl (80-96) 08/14/19 15:10 MCHC 32.8 g/dl (32.0-35.9) 08/14/19 15:10 RDW 14.1 % (11.9-15.9) 08/14/19 15:10 Plt Count 177 K/MM3 (134-434) 08/14/19 15:10 MPV 9.4 fl (7.5-11.1) 08/14/19 15:10 CMP Sodium 139 mmol/L (136-145) 08/13/19 10:12 Potassium 3.7 mmol/L (3.5-5.1) 08/13/19 10:12 Chloride 108 mmol/L (98-107) H 08/13/19 10:12 Carbon Dioxide 27 mmol/L (21-32) 08/13/19 10:12 Anion Gap 4 MMOL/L (8-16) L 08/13/19 10:12 BUN 11.8 mg/dL (7-18) 08/13/19 10:12 Creatinine 0.9 mg/dL (0.55-1.3) 08/13/19 10:12 Random Glucose 158 mg/dL (74-106) H 08/13/19 10:12 Calcium 8.1 mg/dL (8.5-10.1) L 08/13/19 10:12 Total Bilirubin 0.2 mg/dL (0.2-1) 08/13/19 10:12 AST 37 U/L (15-37) 08/13/19 10:12 ALT 58 U/L (13-61) 08/13/19 10:12 Alkaline Phosphatase 98 U/L (45-117) 08/13/19 10:12 Total Protein 5.6 g/dl (6.4-8.2) L 08/13/19 10:12 Albumin 2.7 g/dl (3.4-5.0) L 08/13/19 10:12 Current Medications Generic Name Dose Route Start Last Admin Trade Name Freq PRN Reason Stop Dose Admin Acetaminophen 325 mg 08/11/19 16:46 08/15/19 03:53 Tylenol - PO 325 mg Q6H PRN Administration PAIN LEVEL 7-10 Fentanyl 50 mcg 08/11/19 12:25 08/11/19 14:30 Sublimaze Injection - IVPUSH 50 mcg [id number] PRN Administration PAIN-PACU ORDER X 4 DOSES ONLY Fentanyl 25 mcg 08/11/19 13:47 Sublimaze Injection - IVPUSH [id number] PRN PAIN-PACU ORDER X 4 DOSES ONLY Sodium Chloride 1,000 mls @ 83 mls/hr 08/11/19 13:45 08/15/19 15:31 Normal Saline - IV 83 mls/hr ASDIR TOMA Administration Lactated Ringer's 1,000 mls @ 75 mls/hr 08/11/19 14:00 08/14/19 21:32 Lactated Ringers Solution IV Not Given ASDIR TOMA Ceftriaxone Sodium 1 gm/ 50 mls @ 100 mls/hr 08/12/19 12:00 08/15/19 09:37 Dextrose IVPB 100 mls/hr BID TOMA Administration Ondansetron HCl 4 mg 08/11/19 12:25 Zofran Injection IVPUSH Q6H PRN NAUSEA AND/OR VOMITING Oxycodone HCl 5 mg 08/11/19 12:25 08/15/19 03:53 Roxicodone - PO 5 mg Q4H PRN Administration PAIN LEVEL 1-5 Home Medications Medication Instructions Recorded Atorvastatin Ca [Lipitor] 20 mg PO HS 08/10/19 Ibuprofen/Diphenhydramine Cit 1 each PO HS 08/10/19 [Advil Pm Caplet] Tamsulosin HCl [Flomax] 0.4 mg PO HS 08/10/19 Microbiology 08/12/19 12:35 Blood - Peripheral Venous Blood Culture - Preliminary NO GROWTH OBTAINED AFTER 72 HOURS, INCUBATION TO CONTINUE FOR 2 DAYS. 08/12/19 12:45 Blood - Peripheral Venous Blood Culture - Preliminary NO GROWTH OBTAINED AFTER 72 HOURS, INCUBATION TO CONTINUE FOR 2 DAYS. 08/13/19 13:00 Urine - Urine Triana Urine Culture - Final NO GROWTH OBTAINED 08/11/19 13:00 Urine - Urine, Via Cystoscope Urine Culture - Final NO GROWTH OBTAINED ASSESSMENT AND PLAN: Patient is a 64yo female with a history of BPH is POD #3 for TURP due to BPH. consulted for having fever of several day. #POD#3 Hx of BPH/prostatitis s/p TURP s/p CBI , clearing up. Post-operative fever improved ,no growth on the blood cx and urine cx, IV rocephin to be discontinued once the triana is out and able to urinate as per ID and discussed with. #Fever/chills - r/o infectious etiology vs post-op induced #Hypogonadism # Erectile dysfunction on hormone replacement therapy DVT Px: SCDS patient will be discharged by in am , discussed with will sign off the case, thank you for seeing your patient.
--- NOTE | 2019-08-15 18:12 | PN ---
Physical Exam: SUBJECTIVE: Patient seen and examined. pt ambulating to bathroom. still c/o pain responsive to meds. OBJECTIVE: Vital Signs Period Temp Pulse Resp BP Sys/Peterson Pulse Ox Last 24 Hr 98.8 F-99.3 F 72-82 20-20 129-138/69-79 99 GENERAL: The patient is awake, alert, and fully oriented, in mild distress. HEAD: Normal with no signs of trauma. EYES: PERRL, extraocular movements intact, sclera anicteric, conjunctiva clear. No ptosis. ENT: Ears normal, nares patent, oropharynx clear without exudates, moist mucous membranes. NECK: Trachea midline, full range of motion, supple. LUNGS: Breath sounds equal, clear to auscultation bilaterally, no wheezes, no crackles, no accessory muscle use. HEART: Regular rate and rhythm, S1, S2 without murmur, rub or gallop. ABDOMEN: Soft, suprapubic tenderness improving, nondistended, normoactive bowel sounds, no guarding, no rebound, no CVA tenderness EXTREMITIES: 2+ dorsal pedal pulses, warm, nocalf tenderness, well-perfused, no edema. NEUROLOGICAL: Cranial nerves II through XII grossly intact. Normal speech, gait not observed. PSYCH: Normal mood, normal affect. SKIN: Warm, dry, normal turgor Active Medications Generic Name Dose Route Start Last Admin Trade Name Freq PRN Reason Stop Dose Admin Acetaminophen 325 mg 08/11/19 16:46 08/15/19 17:00 Tylenol - PO 325 mg Q6H PRN Administration PAIN LEVEL 7-10 Fentanyl 50 mcg 08/11/19 12:25 08/11/19 14:30 Sublimaze Injection - IVPUSH 50 mcg [id number] PRN Administration PAIN-PACU ORDER X 4 DOSES ONLY Fentanyl 25 mcg 08/11/19 13:47 Sublimaze Injection - IVPUSH [id number] PRN PAIN-PACU ORDER X 4 DOSES ONLY Sodium Chloride 1,000 mls @ 83 mls/hr 08/11/19 13:45 08/15/19 15:31 Normal Saline - IV 83 mls/hr ASDIR TOMA Administration Lactated Ringer's 1,000 mls @ 75 mls/hr 08/11/19 14:00 08/14/19 21:32 Lactated Ringers Solution IV Not Given ASDIR TOMA Ceftriaxone Sodium 1 gm/ 50 mls @ 100 mls/hr 08/12/19 12:00 08/15/19 09:37 Dextrose IVPB 100 mls/hr BID TOMA Administration Ondansetron HCl 4 mg 08/11/19 12:25 Zofran Injection IVPUSH Q6H PRN NAUSEA AND/OR VOMITING Oxycodone HCl 5 mg 08/11/19 12:25 08/15/19 16:59 Roxicodone - PO 5 mg Q4H PRN Administration PAIN LEVEL 1-5 ASSESSMENT/PLAN: Patient is a 64yo female with a history of BPH is POD #3 for TURP due to BPH. consulted for having fever of several day. POD3 Hx of BPH/prostatitis s/p TURP s/p CBI clearing up afebrile blood cx and urine cx showed no growth S/p triana removal patient ambulating to bathroom to urinate D/C'ed IV rocephin as per ID and Erectile dysfunction on hormone replacement therapy DVT PPx SCDS will sign off the case, thank you for seeing your patient. Visit type - Emergency Visit Emergency Visit: Yes ED Registration Date: 08/13/19 Care time: The patient presented to the Emergency Department on the above date and was hospitalized for further evaluation of their emergent condition. - New Patient This patient is new to me today: Yes Date on this admission: 08/15/19 - Critical Care Critical Care patient: No - Discharge Referral Referred to [facility] Med P.C.: No ATTENDING PHYSICIAN STATEMENT I saw and evaluated the patient. I reviewed the resident's note and discussed the case with the resident. I agree with the resident's findings and plan as documented. SUBJECTIVE: OBJECTIVE: ASSESSMENT AND PLAN:
[2019-08-15] MEDS: LACTATED RINGERS SOLUTION 1,000 ML IV SCH (21:42)
[2019-08-16] MEDS ORDERED: cefTRIAXone SODIUM 1 GM VIAL ONE (09:32)
[2019-08-16] MEDS ORDERED: DEXTROSE 5%-WATER - 50 ML IVPB ONE (09:33)
[2019-08-16] MEDS: CEFTRIAXONE 1 GM in DEXTROSE 5%-WATER - 50 ML IVPB SCH (09:36)
--- NOTE | 2019-08-16 11:00 | PN ---
Progress Note, Physician History of Present Illness: patient stable no new issues - Current Medication List Current Medications: Active Medications Acetaminophen (Tylenol -) 325 mg PO Q6H PRN PRN Reason: PAIN LEVEL 7-10 Last Admin: 08/15/19 17:00 Dose: 325 mg Fentanyl (Sublimaze Injection -) 50 mcg IVPUSH [id number] PRN PRN Reason: PAIN-PACU ORDER X 4 DOSES ONLY Last Admin: 08/11/19 14:30 Dose: 50 mcg Fentanyl (Sublimaze Injection -) 25 mcg IVPUSH [id number] PRN PRN Reason: PAIN-PACU ORDER X 4 DOSES ONLY Sodium Chloride (Normal Saline -) 1,000 mls @ 83 mls/hr IV ASDIR [facility] Last Admin: 08/15/19 15:31 Dose: 83 mls/hr Lactated Ringer's (Lactated Ringers Solution) 1,000 mls @ 75 mls/hr IV ASDIR [facility] Last Admin: 08/15/19 21:42 Dose: Not Given Ceftriaxone Sodium 1 gm/ (Dextrose) 50 mls @ 100 mls/hr IVPB BID [facility] Last Admin: 08/16/19 09:36 Dose: 100 mls/hr Ondansetron HCl (Zofran Injection) 4 mg IVPUSH Q6H PRN PRN Reason: NAUSEA AND/OR VOMITING Oxycodone HCl (Roxicodone -) 5 mg PO Q4H PRN PRN Reason: PAIN LEVEL 1-5 Last Admin: 08/15/19 16:59 Dose: 5 mg - Objective Vital Signs: Vital Signs Temperature 98.7 F 08/15/19 16:20 Pulse Rate 71 08/15/19 16:20 Respiratory Rate 20 08/15/19 16:20 Blood Pressure 142/75 08/15/19 16:20 O2 Sat by Pulse Oximetry (%) 100 08/15/19 21:00 Constitutional: Yes: No Distress, Calm Cardiovascular: Yes: Regular Rate and Rhythm Respiratory: Yes: Regular, CTA Bilaterally Gastrointestinal: Yes: Normal Bowel Sounds, Soft Musculoskeletal: Yes: WNL Extremities: Yes: WNL Neurological: Yes: Alert, Oriented Psychiatric: Yes: Alert, Oriented Labs: CBC, BMP 08/14/19 15:10 08/13/19 10:12 Assessment/Plan 64 y.o. male with PMH of prostatitis/BPH with elevated PSA (previous biopsies benign), erectile dysfunction and hypoganidism on HRT underwent cystoscopy/TURP 2 days ago and subsequently developed fevers Fever/chills - r/o infectious etiology vs post-op induced BPH/prostatitis s/p cystoscopy/TURP POD#2 Hypogonadism Erectile dysfunction on hormone replacement therapy doing well mild hematuria stable monitor off of abx
[2019-08-16 12:14] VITALS: BP 131/72; PULSE 72; TEMP 98
== END 2019-08-16 14:18 | disposition home or self-care (01) | DRG 714 ==
LOC: JASUSAT 04:59 → JASU-SURG 04:59 → J8W 16:44
PROVIDERS: ADMIT Urology; ATTEND Urology
PROC: 0V507ZZ Destruction of Prostate, Via Natural or Artificial Opening (ICD-10-PCS; principal; 2019-08-11 11:00)
PROC: 0VT08ZZ Resection of Prostate, Via Natural or Artificial Opening Endoscopic (ICD-10-PCS; 2019-08-11 11:00)
DX: N40.1 Benign prostatic hyperplasia with lower urinary tract symptoms (principal); R33.9 Retention of urine, unspecified; N13.9 Obstructive and reflux uropathy, unspecified; N41.9 Inflammatory disease of prostate, unspecified; R50.9 Fever, unspecified
CPT/HCPCS: 36415; 71045-TC-FY; 80053; 85025; 87040; 87086; 87804; 88305-TC; 88312-TC; 88342-TC; 94010; 94760; J0131; J7030; Q2036

== ENCOUNTER 2024-02-01 03:59 | Day surgery (SDC) | payer OTHER ==
[2024-01-31 13:02] VITALS: BMI 22.0
[2024-02-01 09:45] VITALS: TEMP 97.8
[2024-02-01 11:02] VITALS: BP 122/74; PULSE 72; RESP 18
== END 2024-02-01 11:25 | disposition home or self-care (01) ==
LOC: JASU-ENDO 03:59
PROVIDERS: ATTEND Internal Medicine Gastroenterology
PROC: 0DB78ZX Excision of Stomach, Pylorus, Via Natural or Artificial Opening Endoscopic, Diagnostic (ICD-10-PCS; 2024-02-01)
PROC: 0DB68ZX Excision of Stomach, Via Natural or Artificial Opening Endoscopic, Diagnostic (ICD-10-PCS; 2024-02-01)
PROC: 0DB18ZX Excision of Upper Esophagus, Via Natural or Artificial Opening Endoscopic, Diagnostic (ICD-10-PCS; 2024-02-01)
PROC: 0DB28ZX Excision of Middle Esophagus, Via Natural or Artificial Opening Endoscopic, Diagnostic (ICD-10-PCS; 2024-02-01)
PROC: 0DB38ZX Excision of Lower Esophagus, Via Natural or Artificial Opening Endoscopic, Diagnostic (ICD-10-PCS; 2024-02-01)
PROC: 0DB98ZX Excision of Duodenum, Via Natural or Artificial Opening Endoscopic, Diagnostic (ICD-10-PCS; principal; 2024-02-01 08:45)
DX: K25.9 Gastric ulcer, unspecified as acute or chronic, without hemorrhage or perforation (principal); K31.7 Polyp of stomach and duodenum; K21.00 Gastro-esophageal reflux disease with esophagitis, without bleeding
CPT/HCPCS: 88305-TC; 88342-TC

== ENCOUNTER 2024-02-29 04:40 | Day surgery (SDC) | payer OTHER ==
[2024-02-28 11:11] VITALS: BMI 22.6
[2024-02-29 09:13] VITALS: TEMP 97.1
[2024-02-29 09:41] VITALS: BP 119/69; PULSE 61; RESP 13
== END 2024-02-29 09:59 | disposition home or self-care (01) ==
LOC: JASU-ENDO 04:40
PROVIDERS: ATTEND Internal Medicine Gastroenterology
PROC: 0DJD8ZZ Inspection of Lower Intestinal Tract, Via Natural or Artificial Opening Endoscopic (ICD-10-PCS; principal; 2024-02-29 09:00)
DX: Z12.11 Encounter for screening for malignant neoplasm of colon (principal); K64.8 Other hemorrhoids; K57.30 Diverticulosis of large intestine without perforation or abscess without bleeding; I10 Essential (primary) hypertension

== ENCOUNTER 2024-03-28 13:07 | Observation (INO) | payer OTHER ==
[2024-03-28 14:26] LABS: EPI CELLS 3 /uL (0-25.1); HYALINE CASTS 0 /uL (0-3.1); URINE APPEARANCE TURBID; URINE BACTERIA 1 /uL (0-1359); URINE BILIRUBIN NEGATIVE (NEGATIVE); URINE COLOR ORANGE; URINE GLUCOSE (UA) NEGATIVE (NEGATIVE); URINE KETONE NEGATIVE (NEGATIVE); URINE LEUK ESTERASE TRACE (NEGATIVE); URINE NITRITE NEGATIVE (NEGATIVE); URINE PROTEIN 2+ (NEGATIVE); URINE RBC 1187 /uL (0-23.9); URINE UROBILINOGEN 0.2 mg/dL (0.2-1.0); URINE WBC 19 /uL (0-25.8)
[2024-03-28 15:04] LABS: BASO % 0.5 % (0-2.0); HEMATOCRIT 38.6 % (35.4-49); HEMOGLOBIN 13.1 GM/dL (11.7-16.9); MCH 29.2 pg (25.7-33.7); MCHC 33.9 g/dl (32.0-35.9); MEAN CELL VOLUME 86.2 fl (80-96); MEAN PLT VOLUME 8.7 fl (7.5-11.1); MONO % 7.5 % (3.8-10.2); PLATELET COUNT 253 10^3/uL (134-434); RBC 4.48 M/mm3 (4.00-5.60); RDW 13.8 % (11.9-15.9)
[2024-03-28 15:24] LABS: CHLORIDE 100 mmol/L (98-107); SODIUM 131 mmol/L (136-145)
[2024-03-28 15:25] LABS: CALCIUM 9.4 mg/dL (8.5-10.1)
[2024-03-28 15:26] LABS: CO2 28 mmol/L (21-32); GLUCOSE,RANDOM 93 mg/dL (74-106)
[2024-03-28 15:29] LABS: CREATININE 0.8 mg/dL (0.55-1.3); SGOT/AST 39 U/L (15-37); SGPT/ALT 34 U/L (13-61)
[2024-03-28 15:30] LABS: BILIRUBIN,TOTAL 0.4 mg/dL (0.2-1); TOT PROT 7.9 g/dl (6.4-8.2)
[2024-03-28 15:32] LABS: ALK PHOS 120 U/L (45-117)
[2024-03-28 15:37] LABS: ANION GAP 4 mmol/L (4-13); POTASSIUM 6.5 mmol/L (3.5-5.1)
[2024-03-28 16:33] LABS: POTASSIUM 5.4 mmol/L (3.5-5.1)
[2024-03-28 16:34] LABS: BLOOD UREA NITROGEN 10.3 mg/dL (7-18); CALCIUM 9.3 mg/dL (8.5-10.1)
[2024-03-28 16:38] LABS: CREATININE 0.8 mg/dL (0.55-1.3)
[2024-03-28] MEDS ORDERED: ALBUTEROL SO4 0.083% IH SOL 2.5 MG/3 ML VIAL.NEB. NEB ONE (18:11)
[2024-03-28] MEDS ORDERED: CALCIUM CHLORIDE 1 GM/10 ML *DISP.SYRIN ONE (18:11)
[2024-03-28] MEDS ORDERED: FUROSEMIDE 40 MG/4 ML INJECTABLE VIAL ONE (18:12)
[2024-03-28] MEDS ORDERED: DEXTROSE 50%-WATER 25 GM/50 ML DISP.SYRIN ONE (18:12)
[2024-03-28] MEDS ORDERED: INSULIN REGULAR HUMAN 100 UNITS/ML *VIAL ONE (18:13)
[2024-03-28] MEDS ORDERED: CALCIUM GLUC IN NACL, ISO-OSM 1 GM/50 ML BAG IVPB ONE (18:17)
[2024-03-28] MEDS: FUROSEMIDE 40 MG/4 ML INJECTABLE VIAL IVPUSH ONE (18:35)
[2024-03-28] MEDS: DEXTROSE 50%-WATER - 25 GM/50 ML VIAL IVPUSH ONE (18:35)
[2024-03-28] MEDS: INSULIN REGULAR HUMAN 100 UNITS/ML *VIAL IVPUSH ONE (18:36)
[2024-03-28] MEDS: CALCIUM GLUCONATE 10% - 1,000 MG/10 ML VIAL IVPB ONE (18:36)
[2024-03-28] MEDS: CALCIUM CHLORIDE 10% 1 GM/10 ML *VIAL IVPB ONE (18:36)
[2024-03-28] MEDS: ALBUTEROL SULFATE 0.021% (0.63 MG/3 ML) VIAL.NEB NEB ONE (18:36)
[2024-03-28] MEDS ORDERED: DOCUSATE SODIUM 100 MG CAPSULE (FP) PO PRN (20:08)
[2024-03-28 20:16] LABS: POTASSIUM 3.5 mmol/L (3.5-5.1)
[2024-03-28 20:18] LABS: BLOOD UREA NITROGEN 9.3 mg/dL (7-18); CALCIUM 9.4 mg/dL (8.5-10.1)
[2024-03-28 20:21] LABS: CREATININE 0.9 mg/dL (0.55-1.3)
[2024-03-29 07:16] LABS: BASO % 0.7 % (0-2.0); EOS % 4.3 % (0-4.5); HEMATOCRIT 37.4 % (35.4-49); HEMOGLOBIN 12.5 GM/dL (11.7-16.9); LYMPH % 19.2 % (8-40); MCH 29.1 pg (25.7-33.7); MCHC 33.5 g/dl (32.0-35.9); MEAN CELL VOLUME 86.9 fl (80-96); MEAN PLT VOLUME 8.4 fl (7.5-11.1); MONO % 9.5 % (3.8-10.2); NEUT % 66.3 % (42.8-82.8); PLATELET COUNT 244 10^3/uL (134-434); RDW 13.9 % (11.9-15.9); WHITE BLOOD COUNT 9.6 K/mm3 (4.0-10.0)
[2024-03-29 07:34] LABS: POTASSIUM 4.4 mmol/L (3.5-5.1)
[2024-03-29 07:36] LABS: BLOOD UREA NITROGEN 11.2 mg/dL (7-18); CALCIUM 9.5 mg/dL (8.5-10.1); MAGNESIUM 2.1 mg/dL (1.8-2.4)
[2024-03-29 07:39] LABS: PHOSPHOROUS 3.9 mg/dL (2.5-4.9)
[2024-03-29 07:40] LABS: CREATININE 0.8 mg/dL (0.55-1.3)
[2024-03-29 08:15] LABS: PROTHROMBIN TIME (PATIENT) 11.5 SEC (9.7-13.0)
[2024-03-29 08:18] LABS: ACTIVATED PTT 39.1 SECONDS (25.2-36.5)
[2024-03-29 12:26] VITALS: BMI 21.9
[2024-03-29] MEDS: ACETAMINOPHEN 325 MG TABLET (FP) PO PRN (13:30)
[2024-03-29] MEDS: LIDOCAINE 5% TOPICAL PATCH TP ONE (15:51)
[2024-03-29] MEDS: LIDOCAINE PATCH REMOVAL MC SCH (21:23)
[2024-03-29] MEDS: ROSUVASTATIN CA 20 MG TABLET PO SCH (21:23)
[2024-03-30] MEDS: LIDOCAINE 5% TOPICAL PATCH TP SCH (09:12)
[2024-03-30 10:50] VITALS: TEMP 97.9
[2024-03-30 15:32] VITALS: BP 135/78; PULSE 82; RESP 19
[2024-03-30] MEDS ORDERED: LIDOCAINE PATCH REMOVAL MC SCH (22:00)
== END 2024-03-30 17:15 | disposition home or self-care (01) ==
LOC: JER 13:07 → JERBED 17:52 → J4W 23:31
PROVIDERS: ADMIT Internal Medicine; ATTEND Family Medicine
PROC: 3E033GC Introduction of Other Therapeutic Substance into Peripheral Vein, Percutaneous Approach (ICD-10-PCS; principal; 2024-03-28)
PROC: 3E033NZ Introduction of Analgesics, Hypnotics, Sedatives into Peripheral Vein, Percutaneous Approach (ICD-10-PCS; 2024-03-28)
PROC: 3E0F7SF Introduction of Other Gas into Respiratory Tract, Via Natural or Artificial Opening (ICD-10-PCS; 2024-03-28)
DX: R31.9 Hematuria, unspecified (principal); E87.5 Hyperkalemia; I10 Essential (primary) hypertension; E78.5 Hyperlipidemia, unspecified; N40.0 Benign prostatic hyperplasia without lower urinary tract symptoms; N52.9 Male erectile dysfunction, unspecified; E29.1 Testicular hypofunction
CPT/HCPCS: 36415; 76775-TC; 76856-TC; 80048; 80053; 81003; 83735; 84100; 85025; 85610; 85730; 87086; 93005; 93010; 94640; 96374; 96375; 99285-25; G0378